=== PATIENT | female | born 1990 | race African-American/Black ===

== ENCOUNTER 2023-05-16 10:46 | Emergency (ER) | payer OTHER, SELFPAY ==
[2023-05-16 10:53] VITALS: BP 151/103; PULSE 80; RESP 15; TEMP 36.6; O2SAT 100
[2023-05-16 11:04] VITALS: BP 150/111; PULSE 78; RESP 16; O2SAT 100
[2023-05-16] MEDS: amLODIPine BESYLATE 5 MG TABLET 10 MG PO (11:04)
[2023-05-16] MEDS: Please add drug allergy info to patient profile. 1 EACH XX (11:04)
[2023-05-16] MEDS: MECLIZINE HCL 25 MG TABLET PO (11:04)
[2023-05-16 12:17] VITALS: BP 154/100; PULSE 58; RESP 14; O2SAT 100
--- NOTE | 2023-05-16 12:18 | ED.GENADULT ---
HPI - General Adult General Chief complaint: Recheck/Abnormal Lab/Rx Stated complaint: HTN Time Seen by Provider: 05/16/23 10:52 History of Present Illness HPI narrative: Patient is a 33-year-old female who presents ER with elevated blood pressures. 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 Patient did not take her amlodipine this morning. She reports she is having some of fullness in her left ear and spinning dizziness that causes nausea. She has had vertigo in the past and this felt the same. No numbness or weakness in arm or leg. Has worsening dizziness with turning her head left and right. Related Data Allergies Allergy/AdvReac Type Severity Reaction Status Date / Time codeine Allergy Swelling Verified 05/16/23 11:02 of Lip/Tongue/Throat shellfish derived Allergy Swelling Verified 05/16/23 11:03 of Lip/Tongue/Throat Review of Systems Review of Systems: All systems reviewed & are unremarkable except as noted in HPI and below Constitutional: Constitutional: Denies chills, Denies fatigue and Denies fever(s) ENT: Reports vertigo, Denies nasal congestion and Denies sore throat Cardiovascular: Cardiovascular: Reports no additional cardiovascular complaints Respiratory: Respiratory: Reports no additional respiratory complaints Gastrointestinal: Gastrointestinal: Denies abdominal pain, Reports nausea and Denies vomiting PMFSH Past Medical History Medical History (Updated 05/16/23 @ 12:26 by Shayne Antoine MD) Chronic hypertension Vertigo Surgical History Surgical History (Updated 05/16/23 @ 12:26 by Shayne Antoine MD) No pertinent past surgical history Exam Narrative: GENERAL: Well-appearing, well-nourished, and in no acute distress. HEAD: Normocephalic, atraumatic. ENT: Mucous membranes moist. TMs normal-appearing bilaterally. NECK: Supple. CHEST: Clear to auscultation. No respiratory distress. HEART: Regular rate and rhythm. Normal peripheral pulses. ABDOMEN: Soft, nontender, nondistended. EXTREMITIES: Normal range of motion. No edema. NEURO: Alert and oriented x3. PSYCH: Normal mood and affect. Course Course Emergency Course: Patient resting comfortably. Dizziness improved. Patient given home dose of amlodipine. Discussed return precautions patient verbalized understanding. Vital Signs Vital signs: Vital Signs Temperature 97.9 F 05/16/23 10:53 Pulse Rate 80 05/16/23 10:53 Respiratory Rate 15 05/16/23 10:53 Blood Pressure 151/103 H 05/16/23 10:53 Pulse Oximetry 100 05/16/23 10:53 Oxygen Delivery Room Air 05/16/23 10:53 Temperature 97.9 F 05/16/23 10:53 Pulse Rate 58 L 05/16/23 12:17 Respiratory Rate 14 05/16/23 12:17 Blood Pressure 154/100 H 05/16/23 12:17 Pulse Oximetry 100 05/16/23 12:17 Oxygen Delivery Room Air 05/16/23 10:53 Medical Decision Making Vital Signs Vital Signs: Vital Signs Temperature 97.9 F 05/16/23 10:53 Pulse Rate 80 05/16/23 10:53 Respiratory Rate 15 05/16/23 10:53 Blood Pressure 151/103 H 05/16/23 10:53 Pulse Oximetry 100 05/16/23 10:53 Oxygen Delivery Room Air 05/16/23 10:53 Temperature 97.9 F 05/16/23 10:53 Pulse Rate 58 L 05/16/23 12:17 Respiratory Rate 14 05/16/23 12:17 Blood Pressure 154/100 H 05/16/23 12:17 Pulse Oximetry 100 05/16/23 12:17 Oxygen Delivery Room Air 05/16/23 10:53 Discharge Plan Discharge Clinical Impression: Vertigo, Chronic hypertension Patient Disposition: Home, Self-Care Condition: Stable Instructions: Vertigo (ED) Additional Instructions: Return to the ER if you have focal weakness or numbness in arm or leg, you have slurred speech, you develop chest pain or shortness of breath, you have additional concerns. Prescriptions: New meclizine 12.5 mg tablet 12.5 mg PO TID PRN (Reason: motion sickne
== END 2023-05-16 12:59 | disposition home or self-care (01) ==
PROVIDERS: Emergency Provider Emergency Medicine
DX: R42 Dizziness and giddiness (principal); I10 Essential (primary) hypertension
CPT/HCPCS: 99283; A9270

== ENCOUNTER 2023-07-23 09:33 | Emergency (ER) | payer OTHER, SELFPAY ==
--- NOTE | ~2023-07-23 | CT_ITS ---
EXAMINATION: CT abdomen pelvis w con DATE: 07/23/2023 14:03 INDICATION: Right lower quadrant pain, tenderness. Nausea. TECHNIQUE: Computed tomography (CT) of the abdomen and pelvis was performed with 100 CC Omnipaque 350 intravenous contrast. Automated exposure control and iterative reconstruction technique were employe d. Exam dose: 894.69 mGy-cm total exam DLP. COMPARISON: None. FINDINGS: The lung bases are clear. Normal heart size. No pericardial or pleural effusion. There is focal fatty change of the medial segment along the fissure for the ligamentum teres. No hepa tic, splenic, pancreatic, and adrenal or renal space-occupying mass lesion is evident. No urinary tract calculus or hydroureteronephrosis. Approximately 1.7 cm left corpus luteum cyst is suggested. There is mild free fluid in the posterior cul-de-sac, which may be physiologic. The urinary bladder is relatively evacuated which may account for mild diffuse thickness of the urina ry bladder wall. Cystitis is not excluded. The uterus measures approximately 8.8 cm height, 5.1 cm ma ximal AP dimension at the uterine fundus. The right ovary is not identified. Normal appendix. No bowel obstruction or free air. IMPRESSION: Normal appendix 1.7 cm left corpus luteum cyst Mild bladder wall thickening; cystitis is not excluded Reviewed, dictated and finalized at [facility]. Reviewed, dictated and finalized at [facility]. PATTERN MARKER
--- NOTE | ~2023-07-23 | US_ITS ---
US pelvic complete w TV DATE: 07/23/2023 14:09 INDICATION: Right upper quadrant pain. Rule out torsion. TECHNIQUE: Real-time imaging via transabdominal and transvaginal approaches COMPARISON: 07/23/2023 CT abdomen pelvis FINDINGS: There is basilar proximal 8.6 cm height, 5 cm AP and 6.2 cm transverse dimension. There is heterogeneous echotexture of the uterine myometrium, possibly due to fibroid change. The endometrial echo measures up to 5 mm AP dimension. There are nabothian cysts of the uterine cervix. The right ovary is not visualized, possibly removed; there is a history of tubal in 2020. The left ovary measures 2.3 x 2.5 x 3.5 cm, with vascular flow and multiple follicular cysts, measuri ng up to 1.6 cm approximately. Mildly fluid in the posterior cul-de-sac. IMPRESSION: Right ovary not identified, possibly removed; history of tubal in 2020 Left ovarian follicular cysts measuring up to approximately 1.6 cm Mild free fluid in the posterior cul-de-sac, likely physiologic Reviewed, dictated and finalized at [facility] Reviewed, dictated and finalized at [facility]. ER OPERATOR IMPRESSION: Right ovary not identified, possibly removed; history of tubal preg abigail in 2020 Left ovarian follicular cysts measuring up to approximately 1.6 cm Mild free fluid in the posterior cul-de-sac, likely physiologic
[2023-07-23 09:35] VITALS: BP 152/99; PULSE 86; RESP 18; TEMP 36.4; O2SAT 100
[2023-07-23 10:22] LABS: Basophils Percent Auto 0.7 % (0.2-1.2); Eosinophils Absolute Auto 0.2 K/mm3 (0-0.3); Eosinophils Percent Auto 3.4 % (0-4.4); Hematocrit 40.9 % (37.0-47.0); Lymphocytes Absolute Auto 2.34 K/mm3 (0.9-3.2); Lymphocytes Percent Auto 52.7 % (18.3-44.2); Mean Corpuscular HGB Conc 31.8 g/dl (32-36); Mean Corpuscular Hemoglobin 27.7 pg (26-34); Mean Platelet Volume 11.8 fl (7.4-10.4); Monocytes Absolute Auto 0.4 K/mm3 (0.1-0.6); Monocytes Percent Auto 9.2 % (2.6-8.5); Neutrophils Absolute Auto 1.5 K/mm3 (1.3-6.7); Platelet Count Result 233 k/mm3 (150-375); Red Cell Distribution Width 13.2 % (11.5-14.5); White Blood Count 4.4 K/mm3 (4.5-10.0)
[2023-07-23 10:28] LABS: Appearance Urine Clear (Clear); Bacteria Urine None Seen /hpf; Bilirubin Urine Negative (Negative); Blood Urine Trace (Negative); Color Urine Yellow (Yellow); Glucose Urine UA Negative (Negative); Ketones Urine Negative (Negative); Leukocyte Esterase Ur Negative LEU/UL (Negative); Nitrate Urine Negative (Negative); Non Pathogenic Casts 0-2; Protein Urine Negative (Negative); RBC Urine 0-2 /hpf (0-2); Specific Grav Ur 1.014 (1.001-1.035); Squamous Epithelial Cell Urine Occasional /hpf (Few); WBC Urine 0-5 /hpf; pH Urine 8.5 (5.0-9.0)
[2023-07-23 10:35] LABS: Alanine Aminotransferase 18 U/L (6-35); Albumin Level 4.3 g/dL (3.5-5.1); Alkaline Phosphatase 75 U/L (38-126); Anion Gap 9 mmol/L (8-16); Aspartate Amino Transferase 26 U/L (14-36); Bilirubin,Total 0.5 mg/dL (0.2-1.3); Blood Urea Nitrogen 6 mg/dL (7-17); Calcium 9.3 mg/dL (8.4-10.2); Carbon Dioxide 25 mmol/L (22-30); Chloride 106 mmol/L (98-107); Estimated CRCL calculation 120 ml/min; Estimated Glomerular Filt Rate > 60; Glucose 91 mg/dL (65-110); Lipase 27 U/L (23-300); Potassium 3.9 mmol/L (3.4-5.0); Sodium 140 mmol/L (137-145)
[2023-07-23 10:36] LABS: Add Urine Microscopic? YES
--- NOTE | 2023-07-23 12:29 | ED.GENADULT ---
[facility] - General Adult General Chief complaint: Abdominal Pain Stated complaint: RLQ pain Time Seen by Provider: 07/23/23 11:26 Source: patient Mode of arrival: ambulatory Limitations: no limitations History of Present Illness HPI narrative: This is a 33-year-old female who presents to the ED with chief complaint of right lower quadrant pain beginning yesterday. Reports associated nausea and 1 episode of vomiting. Denies vaginal symptoms, urinary symptoms. States the pain was much worse earlier and has slightly improved. Denies abdominal surgical history. Denies problems with bowel movements. Related Data Allergies Allergy/AdvReac Type Severity Reaction Status Date / Time codeine Allergy Swelling Verified 07/23/23 09:34 of Lip/Tongue/Throat shellfish derived Allergy Swelling Verified 07/23/23 09:34 of Lip/Tongue/Throat Review of Systems Review of Systems: All systems as dictated in [facility] Past Medical History Medical History (Updated 07/23/23 @ 14:44 by Corbin Maddox PA-C) Chronic hypertension Vertigo Surgical History Surgical History (Updated 05/16/23 @ 12:26 by Shayne Antoine MD) No pertinent past surgical history Exam Narrative: GENERAL: Well-appearing, well-nourished, and in no acute distress. HEAD: Normocephalic, atraumatic. EYES: PERRLA and EOMI. ENT: Nares clear, no rhinorrhea or epistaxis. Mucous membranes moist. Oropharynx without tonsillar hypertrophy exudate or other lesions. NECK: Supple. No adenopathy or masses. CHEST: No respiratory distress. Clear to auscultation. No wheezes rales or rhonchi HEART: Regular rate and rhythm. No murmur heard. Normal peripheral pulses. ABDOMEN: Focal right lower quadrant tenderness present. Soft, otherwise nontender, nondistended, normal active bowel sounds. Negative flank tenderness. MSK: Normal range of motion. No edema. SKIN: Warm, dry, no rash. NEURO: Alert and oriented x3. No focal deficits. PSYCH: Normal mood and affect. Course Vital Signs Vital signs: Vital Signs Temperature 97.5 F L 07/23/23 09:35 Pulse Rate 86 07/23/23 09:35 Respiratory Rate 18 07/23/23 09:35 Blood Pressure 152/99 H 07/23/23 09:35 Pulse Oximetry 100 07/23/23 09:35 Oxygen Delivery Room Air 07/23/23 09:35 Temperature 98.7 F 07/23/23 14:55 Pulse Rate 88 07/23/23 14:55 Respiratory Rate 18 07/23/23 14:55 Blood Pressure 150/90 H 07/23/23 14:55 Pulse Oximetry 98 07/23/23 14:55 Oxygen Delivery Room Air 07/23/23 09:35 Medical Decision Making MDM Narrative Medical decision making narrative: This is a 33-year-old female who presents to the ED with chief complaint of lower abdominal pain. Vitals are normal. Afebrile. Exam remarkable for the above. No rigidity or or rebound of the abdomen. White count normal. CMP normal as well. Lipase normal. Urinalysis negative. Pelvic ultrasound: ?Right ovary not identified, possibly removed; history of tubal in 2020 Left ovarian follicular cysts measuring up to approximately 1.6 cm Mild free fluid in the posterior cul-de-sac, likely physiologic? CT abdomen pelvis: ?Normal appendix 1.7 cm left corpus luteum cyst Mild bladder wall thickening; cystitis is not excluded. Overall the workup is appearing largely negative. Most likely diagnosis at this point is a ruptured cyst. Her pain is controlled without intervention here. Pt will be discharged in stable condition. Return precautions given and supportive measures discussed. Pt is understanding and agreeable with plan for discharge and follow-up with PCP. Vital Signs Vital Signs: Vital Signs Temperature 97.5 F L 07/23/23 09:35 Pulse Rate 86 07/23/23 09:35 Respiratory Rate 18 07/23/23 09:35 Blood Pressure 152/99 H 07/23/23 09:35 Pulse Oximetry 100 07/23/23 09:35 Oxygen Delivery Room Air 07/23/23 09:35 Temperature 98.7 F 07/23/23 14:55 Pulse Rate 88 07/23/23 14
--- NOTE | 2023-07-23 12:36 | PC.NURSE ---
US called pt needs full bladder for exam. Water given and pt instructed not to empty bladder until US complete.
[2023-07-23 14:55] VITALS: BP 150/90; PULSE 88; RESP 18; TEMP 37.1; O2SAT 98
== END 2023-07-23 14:59 | disposition home or self-care (01) ==
PROVIDERS: Emergency Medicine; Emergency Provider Physician Assistant
DX: R10.31 Right lower quadrant pain (principal); I10 Essential (primary) hypertension
CPT/HCPCS: 36415; 74177; 76830; 76856; 80053; 81001; 81025; 83690; 85025; 99284; Q9967